=== PATIENT | female | born 1980 | race American Indian/Alaskan Native ===

== ENCOUNTER 2020-11-26 21:31 | Emergency (ER) | payer OTHER ==
[2020-11-26 23:18] VITALS: BP 122/63
--- NOTE | 2020-11-27 01:24 | XRay Report ---
RIGHT TIBIA FIBULA 2 VIEWS 0022 INDICATION: Right calf pain, fall COMPARISON: None available. FINDINGS: Lateral soft tissue swelling is seen at the ankle. No fractures or dislocations are noted. Mild inferior calcaneal spurring is seen. Signer Name: Andres Bauman MD Signed: 11/27/2020 1:20 AM Workstation Name: [id number]
== END 2020-11-26 23:40 | disposition left against medical advice (07) ==
LOC: ED 21:31
DX: M79.604 Pain in right leg (principal); Z53.21 Procedure and treatment not carried out due to patient leaving prior to being seen by health care provider

== ENCOUNTER 2021-07-03 09:38 | Emergency (ER) | payer OTHER ==
[2021-07-03 09:54] VITALS: BP 141/95
[2021-07-03] MEDS ORDERED: ASPIRIN 325 MG TAB PO ONE (09:55)
[2021-07-03 10:34] LABS: Basophils # (Auto) 0.1 K/mm3 (0.0-0.1); Basophils % (Auto) 0.7 % (0.0-1.8); Eosinophils # (Auto) 0.1 K/mm3 (0.0-0.4); Hemoglobin 13.7 gm/dl (10.1-14.3); Lymphocytes # (Auto) 2.3 K/mm3 (1.2-5.4); Lymphocytes % (Auto) 23.2 % (13.4-35.0); Mean Corpuscular HGB Conc 34 % (30-34); Mean Corpuscular Volume 90 fl (79-97); Monocytes # (Auto) 0.9 K/mm3 (0.0-0.8); Monocytes % (Auto) 9.4 % (0.0-7.3); Platelet Count 294 K/mm3 (140-440); Red Blood Count 4.55 M/mm3 (3.65-5.03); Red Cell Distribution Width 14.8 % (13.2-15.2)
--- NOTE | 2021-07-03 10:41 | XRay Report ---
CHEST 2 VIEWS INDICATION / CLINICAL INFORMATION: Chest pain. COMPARISON: None available. FINDINGS: SUPPORT DEVICES: None. HEART / MEDIASTINUM: The heart size and pulmonary vasculature are normal. The aorta is normal in umu derick. LUNGS / PLEURA: No significant pulmonary or pleural abnormality. No pneumothorax. ADDITIONAL FINDINGS: No significant additional findings. IMPRESSION: No acute findings. Signer Name: Branden Pryor MD Signed: 07/03/2021 10:37 AM Workstation Name: [id number]
[2021-07-03 11:28] LABS: Alanine Aminotransferase 18 units/L (7-56); Albumin 4.8 g/dL (3.9-5); Blood Urea Nitrogen 14 mg/dL (7-17); Calcium 10.5 mg/dL (8.4-10.2); Hemolysis Index 9
[2021-07-03 11:39] LABS: BUN/Creatinine Ratio 23
--- NOTE | 2021-07-03 13:06 | Electrocardiograph Report ---
[facility] Test Date: 2021-07-03 Test Time: 09:57:16 Pat Name: JACKELINE SEAY Department: Room: Gender: F [employer]: SCOTTY : 1980 Requested By: ED DOC Order Number: [id number] Reading MD: Robbie Terrell Measurements Intervals Nadeau Rate: 71 P: 18 HI: 136 QRS: 64 QRSD: 74 T: 46 QT: 388 QTc: 422 Interpretive Statements Sinus rhythm No previous ECG available for comparison Electronically Signed On 07-03-2021 13:05:51 EDT by Robbie Terrell
== END 2021-07-03 10:30 | disposition left against medical advice (07) ==
LOC: ED 09:38
DX: R07.9 Chest pain, unspecified (principal); Z53.21 Procedure and treatment not carried out due to patient leaving prior to being seen by health care provider
CPT/HCPCS: 36415; 71046; 80053; 84484; 85025; 93005